=== PATIENT | female | born 1965 | race African-American/Black ===

== ENCOUNTER 2017-04-07 11:42 | Inpatient (IN) | payer OTHER ==
[~2017-04-07] VITALS: Ht 175.3 cm; Wt 80.7 kg
[~2017-04-07 11:42] MED LIST: FERR-71 PO; IBUP-2029 PO
[2017-04-07 13:00] LABS: HEMATOCRIT. 27.1 % (36.0-48.0); HEMOGLOBIN. 8.6 g/dL (12.0-16.0); MEAN CORPUSCULAR HEMOGLOBIN 23.5 pg (28.0-32.0); MEAN CORPUSCULAR VOLUME 74.5 fL (81.0-99.0); MEAN PLATELET VOLUME 7.3 fl (7.4-10.4); PLATELET 288 x1000/uL (130-400); RED BLOOD CELL COUNT 3.64 mill/uL (4.2-5.4); RED CELL DISTRIBUTION WIDTH 16.9 % (11.6-14.6)
[2017-04-07 13:07] LABS: PARTIAL THROMBOPLASTIN TIME 21.7 sec (23.4-31.0); PROTHROMBIN TIME 10.7 sec (9.4-11.6)
[2017-04-07 13:10] LABS: GLUCOSE URINE NEGATIVE (NEGATIVE); KETONES URINE TRACE (NEGATIVE); LEUKOCYTE ESTERASE URINE 1+ (NEGATIVE); NITRITE URINE NEGATIVE (NEGATIVE); OCCULT BLOOD URINE 3+ (NEGATIVE); PROTEIN URINE 1+ (NEGATIVE)
[2017-04-07 13:12] LABS: UCG SCREEN NEGATIVE
[2017-04-07 13:13] LABS: CARBON DIOXIDE 29 mEq/L (21-32); CHLORIDE 108 mEq/L (98-107)
[2017-04-07 13:13] LABS: CLARITY URINE CLOUDY (CLEAR); COLOR URINE DARK YELLOW (YELLOW)
[2017-04-07] MEDS ORDERED: MULT-1146 PO (13:51)
[2017-04-07 14:07] LABS: PLATELET ESTIMATE NORMAL
[2017-04-07] MEDS ORDERED: SODIUM CHLORIDE 0.9% 1,000 ML IV SCH ×2 (14:30→16:23)
[2017-04-07] MEDS ORDERED: MIDAZOLAM HCL 2 MG/2 ML VIAL ONE (15:53)
[2017-04-07] MEDS ORDERED: FENTANYL CITRATE/PF 50MCG/ML 2ML VIAL ONE ×2 (15:54→16:14)
[2017-04-07] MEDS ORDERED: ROCURONIUM BROMIDE 10MG/ML VIAL 5ML IV ONE (15:58)
[2017-04-07] MEDS ORDERED: CEFAZOLIN SODIUM 1000MG/VIAL ONE (15:58)
[2017-04-07] MEDS ORDERED: PROPOFOL 200MG/20ML VIAL IV ONE (15:58)
[2017-04-07] MEDS ORDERED: LIDOCAINE HCL 1% 20ML VIAL (Pyxis) INJ ONE (15:58)
[2017-04-07] MEDS ORDERED: DEXAMETHASONE 4MG/ML 1ML VIAL ONE (16:12)
[2017-04-07] MEDS ORDERED: ONDANSETRON HCL 4MG/2ML VIAL ONE (16:12)
[2017-04-07] MEDS ORDERED: HYDROMORPHONE HCL/PF 2MG/ML CPJ IV PRN (16:30)
[2017-04-07] MEDS ORDERED: ONDANSETRON HCL 4MG/2ML VIAL IV PRN ×2 (16:30→17:45)
[2017-04-07] MEDS ORDERED: MORPHINE SULFATE 4 MG/ML CPJ (NOT FOR IM USE) IV PRN (17:45)
[2017-04-07] MEDS ORDERED: LABETALOL 5MG/ML SYR 20 MG/4 ML SYRINGE IV PRN (18:00)
[2017-04-07] MEDS ORDERED: MEPERIDINE HCL/PF 25MG/ML CPJ IV PRN (18:00)
[2017-04-07 20:00] VITALS: BP 113/64
[2017-04-07 22:00] VITALS: BP 113/64
[2017-04-08] VITALS: BP 116/66
[2017-04-08] MEDS ORDERED: MORPHINE SULFATE 4 MG/ML CPJ (NOT FOR IM USE) IV PRN (03:30)
[2017-04-08 04:00] VITALS: BP 113/61
[2017-04-08] MEDS ORDERED: IBUPROFEN 800MG TABLET PO PRN (07:00)
[2017-04-08] MEDS ORDERED: HYDROCODONE/ACETAMINOPHEN 5/325MG TABLET PO PRN (07:00)
[2017-04-08 08:00] VITALS: BP 122/69
[2017-04-08 08:52] LABS: BASOPHILS % 0.1 % (0.0-2.0); EOSINOPHILS % 0.1 % (0.0-5.0); HEMATOCRIT. 22.9 % (36.0-48.0); LYMPHOCYTES % 7.4 % (20.0-50.0); MEAN CORPUSCULAR HEMOGLOBIN 22.9 pg (28.0-32.0); MEAN CORPUSCULAR VOLUME 75.4 fL (81.0-99.0); MEAN PLATELET VOLUME 7.5 fl (7.4-10.4); MONOCYTES % 9.4 % (2.0-8.0); PLATELET 254 x1000/uL (130-400); RED BLOOD CELL COUNT 3.03 mill/uL (4.2-5.4); RED CELL DISTRIBUTION WIDTH 17.3 % (11.6-14.6)
[2017-04-08 09:30] LABS: HEMOGLOBIN. 6.9 g/dL (12.0-16.0)
[2017-04-08] MEDS: HYDROCODONE/ACETAMINOPHEN 5/325MG TABLET PO PRN ×2 (11:41→21:54)
[2017-04-08 12:00] VITALS: BP 112/68
[2017-04-08 16:00] VITALS: BP 104/64
[2017-04-08 20:00] VITALS: BP 117/67
[2017-04-09] VITALS: BP 116/64
[2017-04-09 04:00] VITALS: BP 124/74
[2017-04-09 08:00] VITALS: BP 111/58
[2017-04-09 08:39] LABS: BASOPHILS % 0.2 % (0.0-2.0); EOSINOPHILS % 0.5 % (0.0-5.0); HEMATOCRIT. 22.3 % (36.0-48.0); LYMPHOCYTES % 14.9 % (20.0-50.0); MEAN CORPUSCULAR HEMOGLOBIN 23.2 pg (28.0-32.0); MEAN CORPUSCULAR VOLUME 74.7 fL (81.0-99.0); MEAN PLATELET VOLUME 7.2 fl (7.4-10.4); MONOCYTES % 11.1 % (2.0-8.0); NEUTROPHILS % 73.3 % (40.0-76.0); PLATELET 221 x1000/uL (130-400); RED BLOOD CELL COUNT 2.98 mill/uL (4.2-5.4); RED CELL DISTRIBUTION WIDTH 17.1 % (11.6-14.6)
[2017-04-09 09:01] LABS: HEMOGLOBIN. 6.9 g/dL (12.0-16.0)
[2017-04-09 11:45] VITALS: BP 112/73
[2017-04-09] MEDS: HYDROCODONE/ACETAMINOPHEN 5/325MG TABLET PO PRN (14:13)
[2017-04-09 15:51] VITALS: BP 125/72
[2017-04-09] MEDS ORDERED: MAGNESIUM HYDROXIDE 400MG/5ML 30ML UDC PO PRN (16:30)
[2017-04-09] MEDS: DOCUSATE SODIUM 100MG CAPSULE PO SCH (17:31)
[2017-04-09 19:57] VITALS: BP 131/76
[2017-04-10] VITALS: BP 128/77
[2017-04-10 04:00] VITALS: BP 122/79
[2017-04-10] MEDS: HYDROCODONE/ACETAMINOPHEN 5/325MG TABLET PO PRN (05:38)
[2017-04-10 08:00] VITALS: BP 123/70
[2017-04-10] MEDS: DOCUSATE SODIUM 100MG CAPSULE PO SCH (08:48)
[2017-04-10 12:00] VITALS: BP 119/61
[2017-04-10 13:10] VITALS: BP 112/66
== END 2017-04-10 14:20 | disposition home or self-care (01) | DRG 742 ==
LOC: OR 11:42 → 8WST 19:15
PROVIDERS: ADMIT Obstetrics & Gynecology; ATTEND Obstetrics & Gynecology
PROC: 0UTC0ZZ Resection of Cervix, Open Approach (ICD-10-PCS; 2017-04-07)
PROC: 0UT60ZZ Resection of Left Fallopian Tube, Open Approach (ICD-10-PCS; 2017-04-07)
PROC: 0UT90ZZ Resection of Uterus, Open Approach (ICD-10-PCS; principal; 2017-04-07 13:30)
DX: D25.9 Leiomyoma of uterus, unspecified (principal); D62 Acute posthemorrhagic anemia; N70.11 Chronic salpingitis; Z79.899 Other long term (current) drug therapy
CPT/HCPCS: 36415; 71010; 80048; 81001; 81025; 85025; 85610; 85730; 86850; 86900; 86920; 88305; 88307; 93005; C1893; J0690; J1100; J1170; J2175; J2250; J2270; J2405; J2704; J3010; J3490; J7030

== ENCOUNTER 2019-07-15 19:32 | Emergency (ER) | payer OTHER ==
[~2019-07-15] VITALS: Ht 175.3 cm; Wt 91.0 kg
[~2019-07-15 19:32] MED LIST changes: +MULT-1146 PO
[2019-07-15 21:05] VITALS: BP 122/90
[2019-07-16] MEDS ORDERED: HYDROCODONE/APAP 7.5/325MG 1 TAB TABLET PO ONE (00:15)
[2019-07-16] MEDS ORDERED: DIAZEPAM 5 MG TABLET PO ONE (00:15)
[2019-07-16] MEDS ORDERED: IBUPROFEN 800MG TABLET PO ONE (00:15)
[2019-07-16] MEDS ORDERED: ONDANSETRON 4MG ODT PO ONE (00:15)
[2019-07-16 01:11] LABS: CLARITY URINE CLOUDY (CLEAR); COLOR URINE YELLOW (YELLOW); KETONES URINE TRACE (NEGATIVE); LEUKOCYTE ESTERASE URINE 3+ (NEGATIVE); NITRITE URINE POSITIVE (NEGATIVE); OCCULT BLOOD URINE 1+ (NEGATIVE); PROTEIN URINE TRACE (NEGATIVE); SPECIFIC GRAVITY URINE 1.025 (1.005-1.030); UROBILINOGEN URINE 0.2 E.U./dL (0.2-1.0)
[2019-07-16] MEDS ORDERED: LEVOFLOXACIN 500MG TABLET PO ONE (02:15)
== END 2019-07-16 03:14 | disposition home or self-care (01) ==
LOC: ER 19:32
DX: M54.16 Radiculopathy, lumbar region (principal); N30.90 Cystitis, unspecified without hematuria; F17.290 Nicotine dependence, other tobacco product, uncomplicated; I10 Essential (primary) hypertension; Z98.890 Other specified postprocedural states; Z88.5 Allergy status to narcotic agent; Z88.1 Allergy status to other antibiotic agents
CPT/HCPCS: 74176; 81003; 87077; 87086; 87186; 99284; Q0162; Z7610